=== PATIENT | female | born 1990 | race Caucasian/White ===

== ENCOUNTER → 2018-09-07 | Outpatient (REF) | payer MEDICAID ==
[2018-09-07 14:19] LABS: BASO % 0.5 % (0.0-1.0); EOS # 0.1 10^3/uL (0.0-0.50); HEMATOCRIT 41.9 % (36.0-47.0); HEMOGLOBIN 13.6 g/dl (12.0-15.5); LYMPH # 1.5 10^3/uL (1.5-6.5); LYMPH % 34.8 % (24.0-44.0); MEAN CORPUSCULAR HEMOGLOBIN 28.6 pg (27.0-33.0); MEAN CORPUSCULAR HGB CONC 32.5 g/dl (32.0-36.5); MONO # 0.4 10^3/uL (0.0-0.8); NEUTROPHILS # 2.4 10^3/uL (1.8-7.7); NEUTROPHILS % 54.5 % (36.0-66.0); PLATELET COUNT, AUTOMATED 234 10^3/uL (150-450); RED BLOOD COUNT 4.76 10^6/uL (4.00-5.40); WHITE BLOOD COUNT 4.4 10^3/uL (4.0-10.0)
[2018-09-07 14:30] LABS: ALT/SGPT 14 U/L (12-78); BILIRUBIN,TOTAL 0.5 MG/DL (0.2-1.0); BLOOD UREA NITROGEN 13 MG/DL (7-18); CALCIUM LEVEL 8.7 MG/DL (8.5-10.1); CARBON DIOXIDE LEVEL 31 MEQ/L (21-32); CHLORIDE LEVEL 107 MEQ/L (98-107); CHOLESTEROL LEVEL 173 MG/DL (<200); CHOLESTEROL RISK RATIO 3.326 (<5); FREE T4 0.81 NG/DL (0.76-1.46); GLOMERULAR FILTRATION RATE > 60.0 (>60); GLUCOSE, FASTING 85 MG/DL (70-100); HDL CHOLESTEROL 52 MG/DL (>40); LDL CHOLESTEROL 105 MG/DL (<100); NON-HDL-C 121 MG/DL; POTASSIUM SERUM 4.9 MEQ/L (3.5-5.1); SODIUM LEVEL 141 MEQ/L (136-145); TOTAL PROTEIN 6.8 GM/DL (6.4-8.2); TRIGLYCERIDES LEVEL 78 MG/DL (<150)
[2018-09-07 14:34] LABS: TOTAL 25(OH) VITAMIN D 31.3 NG/ML (30.0-100.0)
[2018-09-07 14:35] LABS: PTH INTACT 65.5 PG/ML (18.5-88.0)
[2018-09-07 15:14] LABS: HEPATITIS C VIRUS ABY INDEX 0.1 INDEX (<0.8)
[2018-09-07 15:15] LABS: HIV 1&2 SCREEN CENTAUR NEGATIVE (NEGATIVE)
[2018-09-07 15:27] LABS: HEMOGLOBIN A1c 5.3 %
[2018-09-08 14:16] LABS: CREATININE, URINE 180.5 mg/dL (20.0-300.0); HEPATITIS BE ANTIGEN Negative (Negative)
[2018-09-09 14:08] LABS: HEPATITIS B SURFACE ANTIGEN NEGATIVE (NEGATIVE)
[2018-09-09 14:36] LABS: HEPATITIS A ANTIBODY IGM NEGATIVE (NEGATIVE); HEPATITIS B CORE ANTIBODY IGM NEGATIVE (NEGATIVE)
== END ==
LOC: M LABDRAWP 11:20
PROVIDERS: ATTEND Nurse Practitioner Family
DX: Z11.3 Encounter for screening for infections with a predominantly sexual mode of transmission (principal); E03.9 Hypothyroidism, unspecified; Z87.898 Personal history of other specified conditions; Z13.228 Encounter for screening for other metabolic disorders; E55.9 Vitamin D deficiency, unspecified

== ENCOUNTER → 2018-09-27 | Outpatient (CLI) | payer MEDICAID ==
--- NOTE | 2018-09-27 18:52 | REP ---
Digital diagnostic bilateral mammography with CAD, 3-D tomography, and focused right breast sonography: History: Intermittent right breast discharge occasionally bloody. No comparison imaging. Mammographic findings: Scattered fibroglandular elements are noted bilaterally in a pattern which is symmetric. No dominant density seen on either side. No microcalcification, architectural distortion, worrisome skin change, or mass lesion is seen. Sonographic findings: The right breast is scanned retroareolar region. Heterogeneous fibroglandular echotexture is seen. No cyst, dilated ducts, mass or acoustic shadowing is seen. Impression: BIRADS category one negative findings. Clinical follow-up is advised. BIRADS 1: BI-RADS/ACR category 1 mammogram. Negative Mammogram. This patient's estimated Tyrer-Cuzick lifetime risk assessment for the breast cancer is 13.5 %. This mammogram was interpreted with the aid of an FDA-approved computer-aided detection system. . The patient states she had a clinical breast exam in September 2018 The patient letter being requested is m2. Electronically Signed by Dre Enriquez MD 09/27/2018 07:34 P
== END ==
LOC: M RAD 14:31
PROVIDERS: ATTEND Nurse Practitioner Family
DX: N64.52 Nipple discharge (principal)
CPT/HCPCS: 76642; 77066; G0279

== ENCOUNTER → 2018-10-07 | Outpatient (REF) | payer MEDICAID ==
[2018-10-13 15:52] LABS: HPV HYBRID CAPTURE II Positive (Negative)
== END ==
LOC: M SFHCPLAZ 15:43
PROVIDERS: ATTEND Nurse Practitioner Family
DX: Z12.4 Encounter for screening for malignant neoplasm of cervix (principal); Z11.51 Encounter for screening for human papillomavirus (HPV); R87.610 Atypical squamous cells of undetermined significance on cytologic smear of cervix (ASC-US)

== ENCOUNTER → 2018-10-31 | Outpatient (REF) | payer OTHER | LOC: M SFHCWAGY 15:30 | PROVIDERS: ATTEND Nurse Practitioner Women's Health | DX: R87.810 Cervical high risk human papillomavirus (HPV) DNA test positive (principal); R87.610 Atypical squamous cells of undetermined significance on cytologic smear of cervix (ASC-US) ==

== ENCOUNTER 2018-12-13 18:44 | Emergency (ER) | payer OTHER ==
[~2018-12-13] VITALS: Ht 172.7 cm; Wt 72.7 kg
[2018-12-13] MEDS ORDERED: HYDR50TA70 (18:51)
[2018-12-13] MEDS ORDERED: TRAZ-160 (18:51)
[2018-12-13] MEDS ORDERED: NS 1,000 ML IV ONE (20:15)
[2018-12-13 21:03] LABS: BASO # 0.1 10^3/uL (0.0-0.2); BASO % 0.9 % (0.0-1.0); EOS # 0.2 10^3/uL (0.0-0.50); EOS % 3.2 % (0.0-3.0); HEMATOCRIT 39.5 % (36.0-47.0); HEMOGLOBIN 13.2 g/dl (12.0-15.5); LYMPH # 2.2 10^3/uL (1.5-6.5); LYMPH % 39.3 % (24.0-44.0); MEAN CORPUSCULAR HEMOGLOBIN 29.7 pg (27.0-33.0); MEAN CORPUSCULAR HGB CONC 33.4 g/dl (32.0-36.5); MEAN CORPUSCULAR VOLUME 88.8 fl (80.0-96.0); MONO # 0.4 10^3/uL (0.0-0.8); NEUTROPHILS # 2.8 10^3/uL (1.8-7.7); NEUTROPHILS % 49.4 % (36.0-66.0); PLATELET COUNT, AUTOMATED 249 10^3/uL (150-450); RED BLOOD COUNT 4.45 10^6/uL (4.00-5.40); WHITE BLOOD COUNT 5.7 10^3/uL (4.0-10.0)
[2018-12-13 21:16] LABS: HCG, SERUM QUALITATIVE NEGATIVE (NEGATIVE)
[2018-12-13 21:18] LABS: ALBUMIN 3.5 GM/DL (3.2-5.2); ALT/SGPT 19 U/L (12-78); BILIRUBIN,DIRECT < 0.1 MG/DL (0.0-0.2); BILIRUBIN,TOTAL 0.4 MG/DL (0.2-1.0); BLOOD UREA NITROGEN 15 MG/DL (7-18); CALCIUM LEVEL 8.5 MG/DL (8.5-10.1); CARBON DIOXIDE LEVEL 30 MEQ/L (21-32); CHLORIDE LEVEL 108 MEQ/L (98-107); CREATININE FOR GFR 0.87 MG/DL (0.55-1.30); GLOMERULAR FILTRATION RATE > 60.0 (>60); GLUCOSE, FASTING 112 MG/DL (70-100); LIPASE 176 U/L (73-393); POTASSIUM SERUM 4.3 MEQ/L (3.5-5.1); SODIUM LEVEL 141 MEQ/L (136-145); TOTAL PROTEIN 6.7 GM/DL (6.4-8.2)
[2018-12-13] MEDS ORDERED: metroNIDAZOLE (FLAGYL) 500 MG TAB PO ONE (21:30)
--- NOTE | 2018-12-13 22:02 | REPVR ---
EXAM: US Pelvis Complete, Transabdominal and US Pelvis, Transvaginal EXAM DATE/TIME: 12/13/2018 9:10 PM CLINICAL HISTORY: 28 years old, female; Signs and symptoms; Menstruation abnormalities; Excessive menstruation; With irregular cycle; Prior surgery; Surgery date: 6+ months; Surgery type: x2; Additional info: Pelvic pain, vag bleeding TECHNIQUE: Imaging protocol: Real-time transabdominal and transvaginal pelvic ultrasound (complete) with image documentation. Transvaginal imaging was used for better evaluation of the endometrium and adnexa. COMPARISON: No relevant prior studies available. FINDINGS: Uterus/cervix: 9.6 x 4.2 x 6.6 cm. Normal endometrial thickness, measuring approximately 7 mm. Right ovary: 5.5 x 2.3 x 3.3 cm. No mass. Normal ovarian blood flow. Left ovary: 5.8 x 3 x 3.9 cm. No mass. Normal ovarian blood flow. Free fluid: None. Bladder: Decompressed urinary bladder, which limits evaluation for wall thickening. IMPRESSION: No acute sonographic findings. Electronically signed by: Drew Sol On 12/13/2018 22:02:53 PM
[2018-12-13 22:19] LABS: CHLAMYDIA DNA AMPLIFICATION NEGATIVE (NEGATIVE); GC DNA AMPLIFICATION NEGATIVE (NEGATIVE)
[2018-12-13] MEDS ORDERED: FLAG500T PO (22:21)
[2018-12-13 22:36] VITALS: BP 121/76
== END 2018-12-13 22:38 | disposition home or self-care (01) ==
LOC: M ED 18:44
DX: N93.9 Abnormal uterine and vaginal bleeding, unspecified (principal); N76.0 Acute vaginitis; Z87.891 Personal history of nicotine dependence

== ENCOUNTER 2019-05-10 14:28 | Emergency (ER) | payer OTHER ==
[~2019-05-10] VITALS: Ht 172.7 cm; Wt 72.7 kg
[2019-05-10 14:28] VITALS: BP 138/63
[~2019-05-10 14:28] MED LIST: FLAG500T PO; HYDR50TA70; TRAZ-252
[2019-05-10] MEDS ORDERED: MELA2.5C2 PO (14:35)
[2019-05-10 15:12] LABS: HEMATOCRIT 35.8 % (36.0-47.0); MEAN CORPUSCULAR HEMOGLOBIN 29.4 pg (27.0-33.0); MEAN CORPUSCULAR HGB CONC 33.5 g/dl (32.0-36.5); MEAN CORPUSCULAR VOLUME 87.7 fl (80.0-96.0); PLATELET COUNT, AUTOMATED 211 10^3/uL (150-450); RED BLOOD COUNT 4.08 10^6/uL (4.00-5.40); WHITE BLOOD COUNT 6.1 10^3/uL (4.0-10.0)
--- NOTE | 2019-05-10 16:41 | REP ---
FIRST TRIMESTER ULTRASOUND: Real-time sonographic evaluation of the gravid uterus is performed. There is a single living intrauterine gestation. The estimated gestational age is 7 weeks 0 days based on a crown rump length of 9 mm, EDC 12/27/2019. heart rate is 141 beats per minute. There is no subchorionic hemorrhage. Complex cystic structure of the right ovary probably represents a corpus luteum, 2.8 x 1.2 x 1.8 cm. There is blood flow seen in each ovary with duplex Doppler evaluation, with no torsion. Electronically Signed by Juan Antonio Abarca MD 05/10/2019 06:43 P
== END 2019-05-10 16:54 | disposition home or self-care (01) ==
LOC: M ED 14:28
DX: O26.851 Spotting complicating pregnancy, first trimester (principal); Z3A.01 Less than 8 weeks gestation of pregnancy

== ENCOUNTER → 2019-06-09 | Outpatient (CLI) | payer OTHER ==
[~2019-06-09] MED LIST changes: +MELA2.5C2 PO
[2019-06-09 13:06] LABS: BASO % 0.5 % (0.0-1.0); EOS % 0.5 % (0.0-3.0); HEMATOCRIT 36.7 % (36.0-47.0); HEMOGLOBIN 12.2 g/dl (12.0-15.5); LYMPH # 1.4 10^3/uL (1.5-5.0); LYMPH % 24.3 % (24.0-44.0); MEAN CORPUSCULAR HGB CONC 33.2 g/dl (32.0-36.5); MEAN CORPUSCULAR VOLUME 87.2 fl (80.0-96.0); MONO # 0.4 10^3/uL (0.0-0.8); MONO % 6.9 % (0.0-5.0); NEUTROPHILS # 3.9 10^3/uL (1.5-8.5); NEUTROPHILS % 67.5 % (36.0-66.0); PLATELET COUNT, AUTOMATED 218 10^3/uL (150-450); RED BLOOD COUNT 4.21 10^6/uL (4.00-5.40); WHITE BLOOD COUNT 5.8 10^3/uL (4.0-10.0)
[2019-06-09 13:44] LABS: FREE T4 0.91 NG/DL (0.76-1.46)
[2019-06-09 13:56] LABS: RUBELLA IgG QUALITATIVE IMMUNE (IMMUNE)
[2019-06-09 14:26] LABS: HIV 1&2 SCREEN CENTAUR NEGATIVE (NEGATIVE)
[2019-06-09 14:29] LABS: CHLAMYDIA DNA AMPLIFICATION NEGATIVE (NEGATIVE); GC DNA AMPLIFICATION NEGATIVE (NEGATIVE)
== END ==
LOC: M WUC 11:50
PROVIDERS: ATTEND Advanced Practice Midwife
DX: Z34.81 Encounter for supervision of other normal pregnancy, first trimester (principal)

== ENCOUNTER → 2019-07-04 | Outpatient (CLI) | payer OTHER | LOC: M WUC 16:26 | PROVIDERS: ATTEND Advanced Practice Midwife | DX: O34.211 Maternal care for low transverse scar from previous cesarean delivery (principal) ==

== ENCOUNTER → 2019-07-06 | Outpatient (CLI) | payer OTHER | LOC: M PLALAB 11:01 | PROVIDERS: ATTEND Advanced Practice Midwife | DX: Z34.82 Encounter for supervision of other normal pregnancy, second trimester (principal); Z3A.00 Weeks of gestation of pregnancy not specified ==

== ENCOUNTER → 2019-08-07 | Outpatient (CLI) | payer OTHER ==
--- NOTE | 2019-08-07 19:27 | REP ---
Clinical: Anatomical evaluation. Comparison: None . Findings: Examination demonstrates a single live intrauterine in breech presentation. motion is identified by technologist. Placenta is noted posterior/fundal and grade zero without evidence for placenta previa or abruption. Amniotic fluid volume is normal. Cervix measures 3.8 cm in length and appears closed. No evidence for nuchal cord. Gestational age by LMP 19 weeks 5 days with ISABEL 12/27/2019 . Gestational age by current measurements 20 weeks 4 days with ISABEL 12/21/2019 . FHR equals 152 beats per minute. BPD 4.8 cm 20 weeks 4 days HC 17.7 cm 20 weeks 1 day AC 16.0 cm 21 weeks 1 day FL 3.3 cm 20 weeks 2 days HL 3.1 cm 20 weeks 3 days HC/AC ratio 1.11 Estimated weight 371 grams ( 85th percentile). Anatomical assessment demonstrates normal structures including cranium, choroid plexus, cavum, cerebellum/posterior fossa, facial features, lungs,diaphragm, stomach, cord insertion/three-vessel cord, bladder, and extremities. Impression: Single live intrauterine in breech presentation demonstrating appropriate interval growth. 2. Limited evaluation of the heart/ventricular outflow tracts, kidneys and spine. Remainder of the anatomical assessment is complete and normal. Electronically Signed by Bonifacio Montes MD 08/07/2019 07:19 P
== END ==
LOC: M RAD 14:17
PROVIDERS: ATTEND Advanced Practice Midwife
DX: Z34.92 Encounter for supervision of normal pregnancy, unspecified, second trimester (principal)

== ENCOUNTER → 2019-09-14 | Outpatient (CLI) | payer OTHER ==
--- NOTE | 2019-09-14 17:03 | REP ---
Clinical: Anatomical evaluation. Comparison: 08/07/2019 . Findings: Examination demonstrates a single live intrauterine in breech presentation. motion is identified by technologist. Placenta is noted posterior/fundal and grade zero without evidence for placenta previa or abruption. Amniotic fluid volume is normal. Cervix measures 3.6 cm in length and appears closed. No evidence for nuchal cord. Gestational age by LMP 25 weeks 1 day with ISABEL 12/27/2019 . FHR equals 128 beats per minute. Estimated weight 838 grams ( 59th percentile). Anatomical assessment demonstrates normal structures including cranium, choroid plexus, cavum, cerebellum/posterior fossa, facial features, lungs, four-chamber heart/ventricular outflow tracts, diaphragm, stomach, cord insertion/three-vessel cord, kidneys/bladder, and extremities. Impression: Single live intrauterine in breech presentation demonstrating appropriate interval growth. Limited evaluation of the spine again noted. The remainder of the anatomical assessment is complete and normal. Electronically Signed by Bonifacio Montes MD 09/14/2019 04:55 P
== END ==
LOC: M RAD 16:02
PROVIDERS: ATTEND Obstetrics & Gynecology
DX: Z36.9 Encounter for antenatal screening, unspecified (principal); Z3A.25 25 weeks gestation of pregnancy

== ENCOUNTER → 2019-10-10 | Outpatient (CLI) | payer OTHER ==
[2019-10-10 20:45] LABS: BASO % 0.4 % (0.0-1.0); EOS # 0.1 10^3/uL (0.0-0.5); EOS % 0.7 % (0.0-3.0); GLUCOSE CHALLENGE TEST 1 HOUR 88 MG/DL (LESS THAN 140); HEMATOCRIT 31.1 % (36.0-47.0); HEMOGLOBIN 10.2 g/dl (12.0-15.5); LYMPH # 1.2 10^3/uL (1.5-5.0); LYMPH % 14.5 % (24.0-44.0); MEAN CORPUSCULAR HEMOGLOBIN 29.9 pg (27.0-33.0); MEAN CORPUSCULAR HGB CONC 32.8 g/dl (32.0-36.5); MEAN CORPUSCULAR VOLUME 91.2 fl (80.0-96.0); MONO # 0.8 10^3/uL (0.0-0.8); MONO % 8.9 % (0.0-5.0); NEUTROPHILS # 6.3 10^3/uL (1.5-8.5); NEUTROPHILS % 74.7 % (36.0-66.0); PLATELET COUNT, AUTOMATED 229 10^3/uL (150-450); RED BLOOD COUNT 3.41 10^6/uL (4.00-5.40); WHITE BLOOD COUNT 8.4 10^3/uL (4.0-10.0)
[2019-10-11 11:53] LABS: RUBELLA IgG QUALITATIVE IMMUNE (IMMUNE)
[2019-10-11 12:22] LABS: HEPATITIS C VIRUS ABY INDEX < 0.0 INDEX (<0.8); HIV 1&2 SCREEN CENTAUR NEGATIVE (NEGATIVE)
== END ==
LOC: M WUC 15:15
PROVIDERS: ATTEND Advanced Practice Midwife
DX: O34.219 Maternal care for unspecified type scar from previous cesarean delivery (principal)

== ENCOUNTER → 2019-11-16 | Outpatient (REF) | payer OTHER ==
[~2019-11-16] MED LIST changes: +PRENTAB9 PO
== END ==
LOC: M LAB REF 12:28
PROVIDERS: ATTEND Obstetrics & Gynecology
DX: Z34.83 Encounter for supervision of other normal pregnancy, third trimester (principal)

== ENCOUNTER 2019-11-20 13:07 | Outpatient (CLI) | payer OTHER ==
[~2019-11-20] VITALS: Ht 172.7 cm; Wt 92.3 kg
[~2019-11-20 13:07] MED LIST changes: -PRENTAB9 PO
[2019-11-20 13:37] VITALS: BP 116/59
[2019-11-20] MEDS ORDERED: BETAMETHASONE SOLUSPAN 6MG/ML 5ML VIAL (J0702 PER 3MG) IM SCH (14:00)
[2019-11-21] MEDS ORDERED: PRENTAB9 PO (14:10)
[2019-11-27] MEDS ORDERED: IRON65TA2 PO (15:48)
== END 2019-11-20 14:25 | disposition home or self-care (01) ==
LOC: M LDO 13:07
PROVIDERS: ATTEND Obstetrics & Gynecology
DX: O99.89 Other specified diseases and conditions complicating pregnancy, childbirth and the puerperium (principal); Z87.59 Personal history of other complications of pregnancy, childbirth and the puerperium; Z98.891 History of uterine scar from previous surgery; Z3A.36 36 weeks gestation of pregnancy
CPT/HCPCS: 59025; 96372; J0702

== ENCOUNTER 2019-11-21 13:52 | Outpatient (CLI) | payer OTHER ==
[~2019-11-21] VITALS: Ht 172.7 cm; Wt 91.7 kg
[2019-11-21 14:04] VITALS: BP 98/58
[2019-11-21] MEDS ORDERED: PRENTAB9 PO (14:10)
[2019-11-21] MEDS ORDERED: BETAMETHASONE SOLUSPAN 6MG/ML 5ML VIAL (J0702 PER 3MG) IM ONE (14:15)
[2019-11-21 14:46] VITALS: BP 107/51
[2019-11-27] MEDS ORDERED: IRON65TA2 PO (15:48)
== END 2019-11-21 14:50 | disposition home or self-care (01) ==
LOC: M LDO 13:52
PROVIDERS: ATTEND Obstetrics & Gynecology
DX: O99.89 Other specified diseases and conditions complicating pregnancy, childbirth and the puerperium (principal); Z87.59 Personal history of other complications of pregnancy, childbirth and the puerperium; Z98.891 History of uterine scar from previous surgery; Z3A.36 36 weeks gestation of pregnancy
CPT/HCPCS: 96372; J0702

== ENCOUNTER 2019-11-29 05:40 | Inpatient (IN) | payer OTHER ==
[~2019-11-29] VITALS: Ht 170.2 cm; Wt 87.0 kg
[2019-11-29] VITALS (7 sets, daily range): BP systolic 100–113; BP diastolic 49–61
[~2019-11-29 05:40] MED LIST changes: +IRON65TA2 PO; +PRENTAB9 PO
[2019-11-29] MEDS ORDERED: LR 1,000 ML IV SCH (05:52)
[2019-11-29] MEDS ORDERED: LACTATED RINGER'S 1000 ML IV STA (05:52)
[2019-11-29] MEDS ORDERED: ceFAZolin SOD 2 GM in IV 1 EA IV ONE (06:00)
[2019-11-29] MEDS ORDERED: BICITRA 30ML SOLN UDC PO ONE (06:00)
[2019-11-29 06:35] LABS: HEMOGLOBIN 10.1 g/dl (12.0-15.5); MEAN CORPUSCULAR HEMOGLOBIN 28.1 pg (27.0-33.0); MEAN CORPUSCULAR HGB CONC 33.7 g/dl (32.0-36.5); MEAN CORPUSCULAR VOLUME 83.3 fl (80.0-96.0); PLATELET COUNT, AUTOMATED 275 10^3/uL (150-450); WHITE BLOOD COUNT 9.7 10^3/uL (4.0-10.0)
[2019-11-29] MEDS ORDERED: OXYTOCIN DRIP 30 UNITS in IV 1 EA IV SCH (07:42)
[2019-11-29] MEDS ORDERED: IBUPROFEN 800 MG TAB PO PRN (07:45)
[2019-11-29] MEDS ORDERED: RHOGAM 300 MCG (1500 IU) INJ (J2790) IM SCH (07:45)
[2019-11-29] MEDS ORDERED: ONDANSETRON 4 MG TAB PO PRN (07:45)
[2019-11-29] MEDS ORDERED: MEASLES,MUMPS,RUBELLA VACCINE INJ (MMR-II) (90707) SC SCH (07:45)
[2019-11-29] MEDS ORDERED: NALBUPHINE HCL 10 MG/ML AMP (J2300) IV PRN ×2 (07:59→09:30)
[2019-11-29] MEDS ORDERED: NALOXONE INJ 0.4MG/1ML VIAL (J2310 PER 1MG) IV PRN ×2 (07:59)
[2019-11-29] MEDS ORDERED: ONDANSETRON 4MG/2ML VIAL IV PRN ×2 (07:59→09:30)
[2019-11-29] MEDS ORDERED: diphenhydrAMINE 50MG/ML VIAL (J1200) IV PRN (07:59)
[2019-11-29] MEDS ORDERED: METOCLOPRAMIDE INJ 10MG/2ML VIAL (J2765 PER 1) IV PRN (07:59)
[2019-11-29] MEDS ORDERED: MORPHINE PRES-FREE INJ 10 MG/10 ML VIAL (J2274) As Ordered ONE (08:11)
[2019-11-29] MEDS ORDERED: ONDANSETRON 4MG/2ML VIAL As Ordered ONE (08:11)
[2019-11-29] MEDS ORDERED: dexameTHASONE 4 MG/ML 1ML VIAL (J1100 PER 1MG) As Ordered ONE (08:11)
[2019-11-29] MEDS ORDERED: OXYTOCIN 30 UNITS IN 0.9% NaCl 500ML IV BAG (J2590) As Ordered ONE ×2 (08:11→09:19)
[2019-11-29] MEDS ORDERED: KETAMINE HCL 200 MG/20 ML VIAL As Ordered ONE (08:11)
[2019-11-29] MEDS ORDERED: KETOROLAC 60 MG/2 ML VIAL As Ordered ONE (08:11)
[2019-11-29] MEDS ORDERED: MIDAZOLAM INJ 2MG/2ML VIAL (J2250 PER 1MG) As Ordered ONE (08:21)
[2019-11-29] MEDS ORDERED: PHENYLephrine HCL 500 MCG/5 ML (100MCG/ML) SYRINGE (J2370) As Ordered ONE (08:24)
[2019-11-29] MEDS ORDERED: ePHEDrine SULFATE 25 MG/5 ML(5MG/ML) SYRINGE As Ordered ONE (08:24)
[2019-11-29 08:27] LABS: CORD GAS HCO3 V 22.7 MEQ/L; CORD GAS O2 SAT V 57.7 %; CORD GAS PCO2 V 38.6 mmHg; CORD GAS PH V 7.387 UNITS; CORD GAS PO2 V 23.7 mmHg; CORD GAS SBC V 21.9 MEQ/L; CORD GAS TCO2 V 23.9 MEQ/L
[2019-11-29 08:28] LABS: CORD GAS ABE A -1.3; CORD GAS O2 SAT A 23.6 %; CORD GAS PCO2 A 54.9 mmHg; CORD GAS PH A 7.294 UNITS; CORD GAS PO2 A 14.1 mmHg; CORD GAS SBC A 21.7 MEQ/L; CORD GAS TCO2 A 27.7 MEQ/L
[2019-11-29] MEDS ORDERED: fentaNYL 100 MCG/2 ML INJECTION (J3010) As Ordered ONE ×2 (08:33→09:11)
[2019-11-29] MEDS: PRENATAL VITAMINS CHEWABLE TABLET PO SCH (09:00)
[2019-11-29] MEDS: fentaNYL 100 MCG/2 ML INJECTION (J3010) IV PRN ×2 (09:22→09:36)
[2019-11-29] MEDS ORDERED: ACETAMINOPHEN 1000MG 100ML IV BTL (OFIRMEV) (J0131 PER 10MG) As Ordered ONE (09:49)
[2019-11-29] MEDS ORDERED: ACETAMINOPHEN *IV* 1,000 MG IV ONE ×2 (10:00)
[2019-11-29] MEDS: PERCOCET 5MG/325MG TAB PO PRN ×2 (16:30→20:41)
[2019-11-30] MEDS: PERCOCET 5MG/325MG TAB PO PRN ×6 (00:13→23:47)
[2019-11-30 02:00] VITALS: BP 108/54
[2019-11-30 06:00] VITALS: BP 109/54
[2019-11-30 06:56] LABS: HEMATOCRIT 31.7 % (36.0-47.0); HEMOGLOBIN 10.1 g/dl (12.0-15.5); MEAN CORPUSCULAR HEMOGLOBIN 27.5 pg (27.0-33.0); MEAN CORPUSCULAR HGB CONC 31.9 g/dl (32.0-36.5); MEAN CORPUSCULAR VOLUME 86.4 fl (80.0-96.0); PLATELET COUNT, AUTOMATED 263 10^3/uL (150-450); RED BLOOD COUNT 3.67 10^6/uL (4.00-5.40); WHITE BLOOD COUNT 13.9 10^3/uL (4.0-10.0)
[2019-11-30 08:00] VITALS: BP 109/54
[2019-11-30 10:00] VITALS: BP 98/55
[2019-11-30] MEDS: PRENATAL VITAMINS CHEWABLE TABLET PO SCH (10:20)
--- NOTE | 2019-11-30 13:44 | RO ---
DATE OF PROCEDURE: 11/29/2019 Brittney is 29-year-old female, 4, para 2-0-1-2, with a history of uterine rupture with her last section at 36 weeks with a classical incision. After extensive counseling and completing beta a decision was made to proceed with her repeat section at 36 weeks to prevent further complications. PREOPERATIVE DIAGNOSES: 1. Intrauterine at 36 weeks gestation with a history of prior section. 2. History of prior uterine rupture with a classical scar. POSTOPERATIVE DIAGNOSES: 1. Intrauterine at 36 weeks gestation with a history of prior section. 2. History of prior uterine rupture with a classical scar. 3. Dense uterine bladder and omental adhesion. 4. Thin lower uterine segments. PROCEDURE: 1. Repeat section. 2. Revision of old scar. 3. Extensive lysis of adhesions. ANESTHESIA: Spinal. SURGEON: Dr. Aparicio SOAP DRIER TENDER: Robyn Carl CNM COMPLICATIONS: None. ESTIMATED BLOOD LOSS: 600 mL. FINDINGS: Live male infant in occiput transverse position, 9/9, weight 7 pounds 2 ounces. Normal-appearing tube and ovary. Very thin lower uterine segment noted with the bladder adherent to the lower uterine segment, the omentum adherent to the uterus as well as the lower uterine segment and anterior abdominal wall. DESCRIPTION OF PROCEDURE: After obtaining informed consent, the patient was taken to the operating room where spinal anesthetic was found to be adequate. She was then draped and prepped in usual sterile fashion in the supine position with the help of Brandy Carl. An elliptical incision was made over the old scars. The old scars were removed. The incision was then carried down to the fascia. Fascia was incised in midline fashion and carried through laterally. Upon dissecting the fascia, the uterus was found right in-between the rectus muscles with the bladder adherent to the lower uterine segment as well as the omentum. At this point, using the Bovie and a series of sharp and blunt dissection we were able to remove the omental adhesions as well as attempting to push down the bladder. However, the uterine segment was really thin. We pushed the bladder as much as possible without causing any bladder injury. The amniotic sac was then noted after uterine incision. The artificial rupture of membrane was performed. Clear fluid noted. was then delivered in atraumatic fashion. Nose and mouth bulb suctioned. Cord doubly clamped and cut, and was then handed over to the waiting warmer. Cord blood and cord gas were sent. Uterus cleared of all clot and debris, and the uterine incision was then repaired in two separate layers of #0 Vicryl sutures. Pelvis copiously irrigated with normal saline and suctioned out. Attention turned to the peritoneum, which was closed in a running fashion using #2-0 Vicryl suture. Fascia closed in two separate segment of #0 Vicryl sutures. All superficial bleeders were coagulated. The skin was reapproximated in a subcuticular fashion using #3-0 Vicryl on a Raheem. Steri-Strips placed. The patient tolerated procedure well. She was then transferred to recovery room in stable condition.
[2019-11-30 18:17] VITALS: BP 113/55
[2019-11-30 22:00] VITALS: BP 119/63
[2019-12-01] MEDS: PERCOCET 5MG/325MG TAB PO PRN ×2 (05:15→10:18)
[2019-12-01 06:00] VITALS: BP 102/65
[2019-12-01] MEDS: PRENATAL VITAMINS CHEWABLE TABLET PO SCH (08:42)
[2019-12-01] MEDS ORDERED: BOOSTRIX/ADACEL VACCINE (DIPHTH/PERTUSS/ACELL/TETANUS) 0.5ML SYR IM ONE (09:00)
[2019-12-01] MEDS ORDERED: INFLUENZA QUADRIVALENT PF VACCINE 0.5ML SYRINGE (90686) IM ONE (09:00)
[2019-12-01] MEDS ORDERED: IBUP80TA PO (12:15)
[2019-12-01] MEDS ORDERED: PERCOCET PO (12:15)
--- NOTE | 2019-12-05 16:22 | DSES ---
DATE OF ADMISSION: 11/29/2019 DATE OF DISCHARGE: 12/01/2019 FINAL DIAGNOSES: 1. Term with a history of prior section. 2. History of uterine rupture and classical section. POSTOPERATIVE DIAGNOSES: 1. Term with a history of prior section. 2. History of uterine rupture and classical section. 3. Dense uterine bladder and omental adhesion. 4. Thin lower uterine segment. PROCEDURE PERFORMED DURING THIS ADMISSION: Repeat section. CONDITION ON DISCHARGE: Stable. DISCHARGE INSTRUCTIONS: The patient is instructed to call if there is any severe bleeding, pain or temperature greater than 101. She is given a prescription for Percocet and ibuprofen as needed for pain. BRIEF HISTORY: Brittney is a 29-year-old female who was admitted at 36 weeks with a history of prior section times three, history of uterine rupture, status post a classical section. She underwent a repeat section and extensive lysis of adhesion. She was then transferred to maternity for postoperative care. Postoperatively, she did well and remained afebrile throughout her hospital stay. On postoperative day #2 on physical exam she was found to be doing well. No complaint. Incision was clean, dry and intact. At this point a decision was made to discharge the patient. Discharge instruction was given. She is to followup in the office in approximately 2 weeks for an incision check.
== END 2019-12-01 12:50 | disposition home or self-care (01) | DRG 540 ==
LOC: M LDI 05:40 → M OBS 10:34
PROVIDERS: ADMIT Obstetrics & Gynecology; ATTEND Obstetrics & Gynecology
PROC: 10D00Z1 Extraction of Products of Conception, Low, Open Approach (ICD-10-PCS; principal; 2019-11-29 07:30)
DX: O34.211 Maternal care for low transverse scar from previous cesarean delivery (principal); Z3A.36 36 weeks gestation of pregnancy; Z37.0 Single live birth; Z87.59 Personal history of other complications of pregnancy, childbirth and the puerperium

== ENCOUNTER 2020-08-19 17:54 | Emergency (ER) | payer OTHER ==
[~2020-08-19] VITALS: Ht 172.7 cm; Wt 69.3 kg
[~2020-08-19 17:54] MED LIST changes: +IBUP80TA PO; +PERCOCET PO
--- OUTSIDE RECORDS SUMMARY | 2020-08-19 18:00 | CCD ---
Author Author Martina Andre [facility] er Organization Martina Powell [facility] er Address Unknown Phone Unavailable Care Team Providers Care Bobbin Cleaner Hand Name Role Phone Test, Provider Unavailable PROBLEMS No Information ALLERGIES No Known Allergies ENCOUNTERS from 1991 to 2020-07-09 Encounter Location Date Provider Diagnosis [facility] [address] [place] [address] [phone] Dec, Provider Test IMMUNIZATIONS Vaccine Route Administration Date Status [facility] Meningococcal Bexsero IM Intramuscular February 20, 2016 Adm inistered [facility] PPD ID Intradermal February 18, 2017 Administered [facility] PPD ID Intradermal February 11, 2017 Administered [facility] PPD ID Intradermal February 20, 2016 Administered [facility] TDAP IM Intramuscular February 20, 2016 Administered [facility] MMR SC Subcutaneous February 18, 2017 Administered SOCIAL HISTORY Tobacco Use: Social History Observation Description Date Details (start date - stop date) Former Smoker Sex Assigned At : Social History Observation Description Sex Assigned At Unknown Alcohol Screen (Audit-C) Question Answer Notes Did you have a drink containing alcohol in the past year? No Points 0 Interpretation Negative Tobacco Use/Smoking Question Answer Notes Patient is a former smoker How long has it been since you last smoked? 1-3 months REASON FOR REFERRAL No Information VITAL SIGNS No information MEDICATIONS Medication SIG (Take, Route, Frequency, Duration) Notes Start Da te End Date Status Prena1 1.4 MG 1 tablet Orally Once a day Active Multi For Her - Orally Active Norethindrone 0.35 MG 1 tablet Orally Once a day for 30 day(s) May, Active PROCEDURES No Information RESULTS No Results REASON FOR VISIT No Information MEDICAL (GENERAL) HISTORY Type Description Date Surgical History section X2 Hospitalization History see surgical history Goals Section No Information Health Concerns No Information MEDICAL EQUIPMENT No Information MENTAL STATUS No Information FUNCTIONAL STATUS No Information ASSESSMENTS No Information PLAN OF TREATMENT Medication Medication Name Sig Start Date Stop Date Norethindrone 0.35 MG 1 tablet Orally Once a day for 30 day(s) 2 0 May, 2017 Insurance Providers Payer Name Payer Address Payer Phone Insured Name Patient Relati onship to Insured Coverage Start Date Coverage End Date Can [address] Corporate Claims Department A [facility] [phone] MARY PETTIT self 2016
--- OUTSIDE RECORDS SUMMARY | 2020-08-19 18:00 | CCD ---
Author Author Martina Andre [facility] er Organization Martina Powell [facility] er Address Unknown Phone Unavailable Care Team Providers Care Towerman Name Role Phone Test, Provider Unavailable PROBLEMS No Information ALLERGIES No Known Allergies ENCOUNTERS from 1991 to 2020-07-03 Encounter Location Date Provider Diagnosis [facility] [address] [place] [address] [phone] Mar, Provider Test IMMUNIZATIONS Vaccine Route Administration Date [...] [address]Z [address] Corporate Claims Department A [facility] [phone] MARY PETTIT self 2016
--- OUTSIDE RECORDS SUMMARY | 2020-08-19 18:00 | CCD | Continuity of Care Document ---
Author Author [facility] Organization [facility] Address Unknown Phone Unavailable Care Team Providers Care Electronics Processor Name Role Phone Dai Fernando Unavailable Unavailable Allergies, Adverse Reactions, Alerts Substance Reaction Status Criticality No Known Allergies Active No Information Medications Medication Instructions Dosage Effective Dates (start - stop) Sta tus Comments trazodone 50 mg tablet take 1 tablet by oral route every day at bedtime 50 MG - Active hydroxyzine HCl 25 mg tablet take 1 tablet by oral rou te 3 times every day as needed 25 MG - Active Problems Condition Effective Dates (start - stop) Clinical Status C omments Encounter for test, result negative Encounter for oth general cnsl and advice on contraception Encntr screen for infections w sexl mode of transmiss Encounter for screening for human immunodeficiency virus Human immunodeficiency virus [HIV] counseling Other sex counseling Acute vaginitis Candidiasis of vulva and vagina Other specified noninflammatory disorders of vagina Pruritus vulvae Encounter for test, result negative Encntr screen for infections w sexl mode of transmiss High risk heterosexual behavior Candidiasis of vulva and vagina Furuncle, unspecified Encounter for test, result negative Encntr screen for infections w sexl mode of transmiss High risk heterosexual behavior Other sex counseling Encounter for oth general cnsl and advice on contraception Acute vaginitis Pelvic and perineal pain Other sex counseling Encounter for oth general cnsl and advice on contraception Encounter for test, result negative Other specified noninflammatory disorders of vagina Encounter for oth general cnsl and advice on contraception Encntr screen for infections w sexl mode of transmiss Encounter for screening for human immunodeficiency virus Human immunodeficiency virus [HIV] counseling Acute vaginitis Pruritus vulvae Person consulting for explanation of exam or test findings Encounter for oth general cnsl and advice on contraception Encounter for initial prescription of other contraceptives Encounter for test, result negative Encntr screen for infections w sexl mode of transmiss Encounter for screening for human immunodeficiency virus Human immunodeficiency virus [HIV] counseling Pruritus vulvae Acute vaginitis Other sex counseling High risk heterosexual behavior Encntr for director design exam (general) (routine) w/o abn findings Family Planning Counseling STI Counseling STI Screening HIV Counseling HIV, Screening PT, Negative Vulvodynia BV Yeast-vulvovaginal BCM Other, Surveillance HIV Counseling HIV, Screening STI Screening Breast screening HPV Screening Test PT, Negative [employer] Exam, Routine WWE Family Planning Counseling Yeast-vulvovaginal STI Screening PAP, High Risk HPV [employer] Exam, Routine WWE STI Screening F/U Surgical AB STI Screening Procedures Procedure Date No Information Results Test Name Date and Time Measure Units Reference Range Abnormal Flag St atus Comments No Information Advance Directives Directive Yes / No Effective Date File Name No Information Encounters Encounter Description Practice Location Reason(s) For Visit Diagnose s Date Provider Providers Copied on Encounter [facility], [address] [place] [address], [address] [place] [address], tel:[phone] [facility] No Information Bhakti Lala. [address] [place] [address], [id number], . tel:[phone] [facility], [address] [place] [address], [id number], tel:[phone] [facility] Encounter for pregn jesse test, result negativeEncounter for oth general cnsl and advice on contraceptionEncntr screen for infections w sexl mode of transmissEncounter for screening for human immunodeficiency virusHuman immunodeficiency virus [HIV] counselingOther sex counselingAcute vaginitisCandidiasis of vulva and vaginaOther specified noninflammatory disorders of vaginaPruritus vulvae Jason Haider. [address] [place] [address], [id number], . tel:[phone] Referring Provider: Meliza Rivera, [address] [place] [address], [address] [place] [address]. tel:[phone] [facility], [address] [place], [place], [id number], [place] tel:[phone] [facility] Encounter for pregn jesse test, result negativeEncntr screen for infections w sexl mode of transmissHigh risk heterosexual behaviorCandidiasis of vulva and vaginaFuruncle, unspecified Brendarick Sherry. [address] [place], [place], [id number], [place]. tel:[phone] Referring Provider: Sherry Delarosa, [address], [place], [id number]. tel:[phone] [facility], [address] [place] [address], [id number], [place] tel:[phone] [facility] Encounter for pregn jesse test, result negativeEncntr screen for infections w sexl mode of transmissHigh risk heterosexual behaviorOther sex counselingEncounter for oth general cnsl and advice on contraceptionAcute vaginitis Miguel grewal [address] [place] [address], [id number], [place]. tel:[phone] Referring Provider: Meliza Rivera, [address], [place], [id number]. tel:[phone] [facility], [address] [place] [address], [id number], [place] tel:[phone] [facility] [place] Pelvic and perineal painOther sex counselingEncounter for oth general cnsl and advice on contraceptionEncounter for test, result negativeOther specified noninflammatory disorders of vagina Bronwyn Hubbard. [address] [place], [place], [id number]. tel:[phone] Referring Provider: Haydee Barnhart, [address] [place], [place], [id number]. tel:[phone] [facility], [address] [place] [address], [id number], [place] tel:[phone] [facility] Encounter for oth g eneral cnsl and advice on contraceptionEncntr screen for infections w sexl mode of transmissEncounter for screening for human immunodeficiency virusHuman immunodeficiency virus [HIV] counselingAcute vaginitisPruritus vulvaePerson consulting for explanation of exam or test findings Keysha Pierce. [address] [place] [address], [id number], . tel:[phone] Referring Provider: Kari Elder, [address] [place] [address], [id number]. tel:[phone] [facility], [address] [place] [address], [id number], tel:[phone] [facility] Encounter for oth g eneral cnsl and advice on contraceptionEncounter for initial prescription of other contraceptivesEncounter for test, result negativeEncntr screen for infections w sexl mode of transmissEncounter for screening for human immunodeficiency virusHuman immunodeficiency virus [HIV] counselingPruritus vulvaeAcute vaginitisOther sex counselingHigh risk heterosexual behaviorEncntr for director design exam (general) (routine) w/o abn findings Jorge Hubbard. [address] [place] [address], [id number]. tel:[phone] Referring Provider: Haydee Barnhart, [address] [place] [address], [id number]. tel:[phone] [facility], [address] [place] [address], [id number], tel:[phone] [facility] Family Planning Cou nselingSTI CounselingSTI ScreeningHIV CounselingHIV, ScreeningPT, NegativeVulvodyniaBVYeast-vulvovaginal Bronwyn Hubbard. [address] [place] [address], [id number]. tel:[phone] Referring Provider: Haydee Barnhart, [address] [place] [address], [id number]. tel:[phone] [facility] [place], [address] [place] [address], [id number], [place] tel:[phone] CLEO Boyce BCM Other, Surveillance Elvin Cox. [address], [place], [id number], [place]. tel:[phone] [facility] [place], [address] [place] [address], [id number], [place] tel:[phone] CLEO Boyce HIV CounselingHIV, ScreeningSTI ScreeningBreast screeningHPV Screening TestPT, NegativeGYN Exam, Routine WWEFamily Planning Counseling Elvin Cox. [address], [place], [id number], [place]. tel:[phone] [facility] [address] [place] [address], [id number], [place] tel:[phone] CLEO Boyce Yeast-vulvovaginalSTI Scr eening Elvin Cox. [address], [place], [id number], [place]. tel:[phone] [facility] [place], [address] [place] [address], [id number], [place] tel:[phone] CLEO Villar PAP, High Risk HPV Arredondo. [address] [place] [address], [id number], [place]. tel:[phone] Referring Provider: Karen Barroso, [address] [place] [address], [id number]. tel:[phone] [facility] [place], [address] [place] [address], [id number], [place] tel:[phone] CLEO Boyce [employer] Exam, Routine WWESTI Screening Matteo Carreon. [address] [place] [address], [id number], [place]. tel:[phone] [facility], [address], [place], [id number], [place] tel:[phone] CLEO Boyce F/U Surgical ABSTI Screen ing Elvin Cox. [address], [place], [id number], [place]. tel:[phone] Family History Family Member Diagnosis Age At Onset Maternal aunt Diabetes mellitus Mother Depression Mother Hypertension No family history of Stroke No family history of Myocardial infarcti on Maternal grandmother Cancer, breast Immunizations Vaccine Date Status Comments tetanus toxoid, adsorbed administered Source: Other Provider measles, mumps and rubella virus vaccine adminis tered Source: Other Provider hepatitis A and hepatitis B vaccine administered Source: Other Provider Payers Payer name Insurance type Covered constitution party ID Authorization(s ) [facility] [id number] Social History Type Description Quantity Date Captured Comments Alcohol Use Details Unknown Caffeine Use Details Unknown Tobacco Use Status No Information Smoking Status Former smoker Sex Female Vital Signs Date / Time: Height Weight BMI Pulse Rate Blood Pressure Temperatu re Respiratory Rate Body Surface Area Head Circumference BMI percentile Pulse Ox In haled Ox No Information Chief Complaint And Reason For Visit No Information Reason For Referral Reason For Referral No Information Plan Of Treatment Date Type Action Status Goal Tobacco cessation counseling com pleted Goal Tobacco cessation counseling com pleted Goal Tobacco cessation counseling com pleted Goal Tobacco cessation counseling com pleted History Of Present Illness Encounter Date Complaint History Of Present I llness No Information Functional Status Date Functional Assessment No Information Medications Administered Medication Instructions Dosage Effective Dates (start - stop) Sta tus Comments No Information Instructions Date Instruction Additional Informati on No Information Assessments Type Assessment Date No Information Goals Health Concern Goal Type Priority Status Date No Information Medical Equipment Description Device [place] Device Identifier Effective Luke es (start - stop) Status No Information Mental Status Date Cognitive Assessment No Information Health Concerns Observation Date No Information Concern Status Date No Information Physical Examination Exam Findings Details No Information
--- OUTSIDE RECORDS SUMMARY | 2020-08-19 18:00 | CCD ---
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 Name Role Phone Kiarra Mathewssica Unavailable Miguel SANDERSP, Kiarra Siussica Unavailable Miguel SANDERSP, Kiarra Siussica Unavailable Miguel SANDERSP, Kiarra Meliza Unavailable Miguel SANDERSP, Kiarra Siussica Unavailable Miguel SANDERSP, Kiarra Siussica Unavailable Joe Marquez Unavailable Unavailable Joe Marquez Unavailable Unavailable Joe Marquez Unavailable Unavailable Joe Marquez Unavailable Unavailable Joe Marquez Unavailable Unavailable Joe Marquez Unavailable Unavailable Dierks, J Dai PA Unavailable Unavailable Dierks, J Dai PA Unavailable Unavailable Dierks, J Dai PA Unavailable Unavailable Dierks, J Dai PA Unavailable Unavailable Dierks, J Dai PA Unavailable Unavailable Dierks, J Dai PA Unavailable Unavailable Dierks, J Dai PA Unavailable Unavailable Dierks, J Dai PA Unavailable Unavailable Dierks, J Dai PA Unavailable Unavailable Dierks, J Dai PA Unavailable Unavailable Dierks, J Dai PA Unavailable Unavailable Dierks, J Dai PA Unavailable Unavailable Dierks, J Dai PA Unavailable Unavailable Dierks, J Dai PA Unavailable Unavailable Dierks, J Dai PA Unavailable Unavailable Dierks, J Dai PA Unavailable Unavailable Re-disclosure Warning The records that you are about to access may contain information from federally-assisted alcohol or drug abuse programs. If such information is present, then the following federally mandated warning applies: This information has been disclosed to you from records protected by federal confidentiality rules (42 CFR part 2). The federal rules prohibit you from making any further disclosure of this information unless further disclosure is expressly permitted by the written consent of the person to whom it pertains or as otherwise permitted by 42 CFR part 2. A general authorization for the release of medical or other information is NOT sufficient for this purpose. The Federal rules restrict any use of the information to criminally investigate or prosecute any alcohol or drug abuse patient.The records that you are about to access may contain highly sensitive health information, the redisclosure of which is protected by Article 27-F of the [facility] Public Health law. If you continue you may have access to information: Regarding HIV / AIDS; Provided by facilities licensed or operated by the [facility] Office of Mental Health; or Provided by the [facility] Office for People With Developmental Disabilities. If such information is present, then the following [facility] mandated warning applies: This information has been disclosed to you from confidential records which are protected by state law. State law prohibits you from making any further disclosure of this information without the specific written consent of the person to whom it pertains, or as otherwise permitted by law. Any unauthorized further disclosure in violation of state law may result in a fine or long term sentence or both. A general authorization for the release of medical or other information is NOT sufficient authorization for further disc losure. Family History Family Member Name Family Member Gender Family Member Status Date o f Status Description Data Source(s) Unknown Female Diagnosis 08/23/2014 12:00:00 AM EST [facility] ([facility]) Encounters Encounter Providers Location Date Indications Data Source(s ) Attender: Dai WAHL PPNCNY [place] 07/04 02:22:00 PM EST - 07/31/2020 02:22:00 PM EST [facility] ([facility]) OutpatientOFFICE VISIT, EST Attender: eMliza ULLOA PPNCN Y [place] 05/31/2020 10:15:00 AM EDT - 05/31/2020 10:15:00 AM EDT Pruritus vulvaeOther specified noninflammatory disorders of vaginaCandidiasis of vulva and vaginaAcute vaginitisOther sex counselingHuman immunodeficiency virus [HIV] counselingEncounter for screening for human immunodeficiency virusEncntr screen for infections w sexl mode of transmissEncounter for oth general cnsl and advice on contraceptionEncounter for test, result negative [facility] ([facility]) Pruritus vulvae Other specified noninflammatory disorder s of vagina Candidiasis of vulva and vagina Acute vaginitis Other sex counseling Human immunodeficiency virus [HIV] couns eling Encounter for screening for human immuno deficiency virus Encntr screen for infections w sexl mode of transmiss Encounter for oth general cnsl and advic e on contraception Encounter for test, result neg ative [address] [phone] 01/17/2020 12:00:00 AM EDT eCW1 ([facility]) [address] [address] 12/15/2019 12:00:00 AM EDT eCW1 ([facility]) [address] [address] 11/29/2019 12:00:00 AM EDT eCW1 ([facility]) [address] [address] 11/29/2019 12:00:00 AM EDT eCW1 ([facility]) [address] [address] 11/07/2019 12:00:00 AM EDT eCW1 ([facility] [address] [address] 10/11/2019 12:00:00 AM EDT eCW1 ([facility]) [facility] [address] [place] [address] Y [address] 09/27/2019 12:00:00 AM EST eCW1 ([facility]) [address] [address] 09/12/2019 12:00:00 AM EST eCW1 ([facility]) [address] [address] 09/06/2019 12:00:00 AM EST eCW1 ([facility]) [address] [address] 08/28/2019 12:00:00 AM EST eCW1 ([facility]) [address] [address] 2019 12:00:00 AM EST eCW1 ([facility]) [address] [address] 07/06/2019 12:00:00 AM EST eCW1 ([facility]) [address] [address] 07/06/2019 12:00:00 AM EST eCW1 ([facility]) Medications Medication Brand Name Start Date Product Form Dose Route Admi nistrative Instructions Pharmacy Instructions Status Indications Reaction Description Data Source(s) Metronidazole 500 MG Oral Tablet metronidazole 500 mg tablet metronidazole 500 mg tablet 05/31/2020 12:00:00 AM EDT active 1 tab po bid x 7d (#14) [facility] ([facility]) Fluconazole 150 MG Oral Tablet fluconazole 150 mg tabl et fluconazole 150 mg tablet 05/31/2020 12:00:00 AM EDT completed 1 po x 1 for fungal infection [facility] ([facility]) DO NOT TAKE HYDROXYZINE W/ FLUCONAZOLE Fluconazole 150 MG Oral Tablet fluconazole 150 mg tabl et fluconazole 150 mg tablet 05/31/2020 12:00:00 AM EDT completed 1 po x 1 for fungal infection [facility] ([facility]) Medication administered onsite Metronidazole 500 MG Oral Tablet metronidazole 500 mg tablet metronidazole 500 mg tablet 05/31/2020 12:00:00 AM EDT complete d 1 tab po bid x 7d (#14) [facility] ([facility]) Medication administered onsite ferrous gluconate 324 MG Oral Tablet Ferrous Gluconate 324 (38 Fe) MG Ferrous Gluconate 324 (38 Fe) MG 10/11/2019 12:00:00 AM EDT active 1 tablet with water or juice between meals eCW1 ([facility]) Oseltamivir 75 MG Oral Capsule [Tamiflu] Tamiflu 75 MG Tamif isaiah 75 MG 09/06/2019 12:00:00 AM EST active 1 capsul e eCW1 ([facility]) Fluconazole 150 MG Oral Tablet [Diflucan] Diflucan 150 MG Di flucan 150 MG 07/06/2019 12:00:00 AM EST suspended 1 tablet eCW1 ([facility]) Fluconazole 150 MG Oral Tablet [Diflucan] Diflucan 150 MG Di flucan 150 MG 07/06/2019 12:00:00 AM EST active 1 tablet eCW1 ([facility]) Fluconazole 150 MG Oral Tablet [Diflucan] Diflucan 150 MG Di flucan 150 MG 07/06/2019 12:00:00 AM EST suspended 1 tablet eCW1 ([facility]) Insurance Providers Payer name Policy type / Coverage type Policy ID Covered republican ID Covered republican's relationship to paz Policy Paz Plan Information FABY [id number] SP [id number] FABY [id number] [place]AXSON [id number] FABY [facility] [id number] 74 [id number] ANSI-Commercial [id number] ANSI-Commercial [id number] ANSI-Commercial [id number] ANSI-Commercial [id number] ANSI-Commercial [id number] ANSI-Sellywhere [id number] ANSI-Sellywhere [id number] ANSI-Medicaid [id number] ANSI-Medicaid [id number] MEDICAID [id number] SP [id number] [facility] [id number] [facility] [id number] [facility] [id number] ANSI-Medicaid [id number] ANSI-Medicaid [id number] ANSI-Commercial [id number] ANSI-Commercial [id number] ANSI-Commercial [id number] ANSI-Commercial [id number] MEDICAID [id number] S [id number] FABY CARE [id number] S [id number] BLUE CROSS [id number] S [id number] MEDICAID [id number] FABY I [id number] Self [id number] MEDICAID M [id number] Self [id number] FABY I [id number] Self [id number] UNAVAILABLE UNAVAILA BLE MEDICAID GME [id number] [place] [id number] [place] [id number] MEDICAID [id number] S [id number] SELF PAY ON CONTRACT *5% OF 85% CC DISC- 12/31/16 S *5% OF 85% CC DISC- 12/31/16 SELF PAY ON CONTRACT UNAVAILABLE S UNAVAILABLE SELF-PAY [id number] S [id number] SELF-PAY UNAVAILABLE S UNAVAILA BLE POMCO [id number] S [id number] SELF-PAY [id number] S [id number] Surgeries/Procedures Procedure Description Date Indications Data Source(s) SMEAR, WET MOUNT, SALINE/INK 05/31/2020 12:00:00 AM EDT - 05/31/2020 12:00:00 AM EDT [facility] ([facility]) ASSAY OF BODY FLUID ACIDITY 05/31/2020 1 2:00:00 AM EDT - 05/31/2020 12:00:00 AM EDT [facility] ([facility]) 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 Contraceptive 05/31/2020 12 :00:00 AM EDT - 05/31/2020 12:00:00 AM EDT [facility] ([facility]) CVR Med.Svc. Height/Weight 05/31/2020 12 :00:00 AM EDT - 05/31/2020 12:00:00 AM EDT [facility] ([facility]) CVR Blood Pressure 05/31/2020 12:00:00 AM EDT - 2019 12:00:00 AM EDT [facility] ([facility]) SYPHILLIS BLOOD SEROLOGY, QUALITATIVE 12:00:00 AM EDT - 05/31/2020 12:00:00 AM EDT [facility] ([facility]) HTLV/HIV SERUM TEST 05/31/2020 12:00:00 AM EDT - 05/31 12:00:00 AM EDT [facility] ([facility]) HEPATITIS C AB TEST 05/31/2020 12:00:00 AM EDT - 05/31 12:00:00 AM EDT [facility] ([facility]) N.GONORRHOEAE, URINE 05/31/2020 12:00:00 AM EDT - 05/31/2020 12:00:00 AM EDT [facility] ([facility]) CHYLMD TRACH, URINE 05/31/2020 12:00:00 AM EDT - 05/31 12:00:00 AM EDT [facility] ([facility]) OFFICE VISIT, EST 05/31/2020 12:00:00 AM EDT - 020 12:00:00 AM EDT [facility] ([facility]) URINE TEST 05/31/2020 12:00:00 AM EDT - 05/31/2020 12:00:00 AM EDT [facility] ([facility]) OB Visit 08/28/2019 12:00:00 AM EST e CW1 ([facility]) Results ID Date Data Source [id number] 05/31/2020 11:44:38 AM EDT [facility] ([facility]) Name Value Range Interpretation Code Description Data Christa rce(s) Supporting Document(s) Hyphae/Lorri: yes; Budding yeast: no; Trich: no; Clue cells: yes (>=20%); WBCs: yes (few); Amine/Whiff test: positive; pH: 5.5 A bnormal (applies to non- numeric results) Wet Prep [facility] ([facility]) ID Date Data Source [id number] 05/31/2020 11:44:11 AM EDT [facility] ([facility]) Name Value Range Interpretation Code Description Data Christa rce(s) Supporting Document(s) pH: 5.5. Vaginal pH [facility] ([facility]) ID Date Data Source [id number] 05/31/2020 10:53:08 AM EDT [facility] ([facility]) Name Value Range Interpretation Code Description Data Christa rce(s) Supporting Document(s) NegativeLot: [id number]: 07/01/2021 High Sensitivity Urine Test [facility] ([facility]) Procedure Social History Code Duration Value Status Description Data Source(s ) Smoking 07/31/2020 12:00:00 AM EST Former smoker completed Former smoker [facility] ([facility]) Vital Signs ID Date Data Source UNK Name Value Range Interpretation Code Description Data Source(s) Body mass index (BMI) [Ratio] 22.93 kg/m2 22.93 kg/m2 [facility] ([facility]) Diastolic blood pressure 70 mm[Hg] 70 mm[Hg] [facility] ([facility]) Systolic blood pressure 118 mm[Hg] 118 mm[Hg] N [facility] ([facility]) Body weight 68.402 kg 68.402 kg [facility] ([facility]) Body height 172.72 cm 172.72 cm [facility] Diastolic blood pressure 70 mm[Hg] 70 mm[Hg] [place] ([facility]) Systolic blood pressure 120 mm[Hg] 120 mm[Hg] e 1 ([facility]) Body mass index (BMI) [Ratio] 27.977 kg/m2 27.9 77 kg/m2 [facility] ([facility]) Body height 68 [in_us] 68 [in_us] [place] ([facility]) Body weight Measured 184.0 [lb_av] 184.0 [lb_av ] [facility] ([facility]) Diastolic blood pressure 62 mm[Hg] 62 mm[Hg] eCW1 ([facility]) Systolic blood pressure 102 mm[Hg] 102 mm[Hg] e CW1 ([facility]) Body mass index (BMI) [Ratio] 27.186 kg/m2 27.1 86 kg/m2 [facility] ([facility]) Body height 68 [in_us] 68 [in_us] [facility] ([facility]) Body weight Measured 178.8 [lb_av] 178.8 [lb_av ] [facility] ([facility]) Diastolic blood pressure 64 mm[Hg] 64 mm[Hg] W1 ([facility]) Systolic blood pressure 110 mm[Hg] 110 mm[Hg] e CW1 ([facility]) Body mass index (BMI) [Ratio] 25.848 kg/m2 25.8 48 kg/m2 eCW1 ([facility]) Body height 68 [in_us] 68 [in_us] eCW1 ([facility]) Body weight Measured 170 [lb_av] 170 [lb_av] eC W1 ([facility]) Patient Treatment Plan of Care Planned Activity Planned Date Details Description Data Source (s) Metronidazole 500 MG Oral Tablet 05/31/2020 12:00:00 AM EDT [facility] ([facility]) Fluconazole 150 MG Oral Tablet 05/31/2020 12:00:00 AM EDT [facility] ([facility]) Fluconazole 150 MG Oral Tablet 05/31/2020 12:00:00 AM EDT [facility] ([facility]) Metronidazole 500 MG Oral Tablet 05/31/2020 12:00:00 AM EDT [facility] ([facility]) ferrous gluconate 324 MG Oral Tablet 10/11/2019 12:00:00 AM EDT eCW1 ([facility]) Oseltamivir 75 MG Oral Capsule [Tamiflu] 09/06/2019 12:00:00 AM EST eCW1 ([facility]) Fluconazole 150 MG Oral Tablet [Diflucan] 07/06/2019 12:00:00 AM ES T eCW1 ([facility])
--- OUTSIDE RECORDS SUMMARY | 2020-08-19 18:00 | CCD ---
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
--- OUTSIDE RECORDS SUMMARY | 2020-08-19 18:00 | CCD | Continuity of Care Document ---
Author Author [facility] Organization [facility] Address Unknown Phone Unavailable Care Team Providers Care Finisher Fine Diamond Dies Name Role Phone Miguel POWER TOOL REPAIRER, Meliza Unavailable Unavailable Allergies, Adverse Reactions, Alerts Substance Reaction Status Criticality No Known Allergies Active No Information Medications Medication Instructions Dosage Effective Dates (start - stop) Sta tus Comments metronidazole 500 mg tablet 1 tab po bid x 7d (#14) Oc - Active trazodone 50 mg tablet take 1 tablet by oral route every day at bedtime 50 MG - Active hydroxyzine HCl 25 mg tablet take 1 tablet by oral rou te 3 times every day as needed 25 MG - Active fluconazole 150 mg tablet 1 po x 1 for fungal infection - No Longer Active metronidazole 500 mg tablet 1 tab po bid x 7d (#14) Oc - No Longer Active fluconazole 150 mg tablet 1 po x 1 for fungal infection - No Longer Active DO NOT TAKE HYDROXYZINE W/ F LUCONAZOLE Problems Condition Effective Dates (start - stop) [...] counseling High risk heterosexual behavior 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) (routine) w/o abn findings Family Planning Counseling STI Counseling STI Screening HIV Counseling HIV, Screening PT, Negative Vulvodynia BV Yeast-vulvovaginal BCM Other, Surveillance HIV Counseling HIV, Screening STI Screening Breast screening HPV Screening Test PT, Negative CLAIM AUDITOR Exam, Routine WWE Family Planning Counseling Yeast-vulvovaginal STI Screening PAP, High Risk HPV CLAIM AUDITOR Exam, Routine WWE STI Screening F/U Surgical AB STI Screening Procedures Procedure Date URINE TEST OFFICE VISIT, EST CHYLMD TRACH, URINE N.GONORRHOEAE, URINE HEPATITIS C AB TEST HTLV/HIV SERUM TEST SYPHILLIS BLOOD SEROLOGY, QUALITATIVE CVR Blood Pressure CVR Med.Svc. Height/Weight CVR Medical Education Coordinator.Svc. Contraceptive CVR Medical Education Coordinator.Svc. Other CVR Medical Education Coordinator.Svc. STI / H ASSAY OF BODY FLUID ACIDITY SMEAR, WET MOUNT, SALINE/INK Results Test Name Date and Time Measure Units Reference Range Abnormal Flag St atus Comments Panel Description: Wet Prep Final Wet Prep 11:44:38 Hyphae/Lorri: yes ; Budding yeast: no; Trich: no; Clue cells: yes (>=20%); WBCs: yes (few); Amine/Whiff test: positive; pH: 5.5 A Final Panel Description: Vaginal pH Final Vaginal pH 11:44:11 pH: 5.5. Final Panel Description: High Sensitivity Urine Test Fi nal High Sensitivity Urine Test 10:53:08 N egativeLot: [id number]: 07/01/2021 Final Advance Directives Directive Yes / No Effective Date File Name No Information Encounters Encounter Description Practice Location Reason(s) For Visit Diagnose s Date Provider Providers Copied on Encounter OFFICE VISIT, EST [facility], [address] [place] [address], [id number], tel:[phone] [facility] [place] Vaginal Discharge (chief complaint)STI Exposure/Screening/Testing (chief complaint) Encounter for test, result negativeEncounter for oth general cnsl and advice on contraceptionEncntr screen for infections w sexl mode of transmissEncounter for screening for human immunodeficiency virusHuman immunodeficiency virus [HIV] counselingOther sex counselingAcute vaginitisCandidiasis of vulva and vaginaOther specified noninflammatory disorders of vaginaPruritus vulvae Miguel Haider. [address] [place] [address], [id number], . tel:[phone] Referring Provider: Meliza Rivera, [address] [place] [address], [id number]. tel:[phone] [facility], [address] [place] [address], [id number], tel:[phone] [facility] [place] Encounter for pregn jesse test, result negativeEncntr screen for infections w sexl mode of transmissHigh risk heterosexual behaviorCandidiasis of vulva and vaginaFuruncle, unspecified Isaura Powell. [address] [place] [address], [id number], . tel:[phone] Referring Provider: Sherry Delarosa, [address] [place] [address], [id number]. tel:[phone] [facility], [address] [place] [address], [id number], [place] tel:[phone] [facility] [place] Encounter for pregn jesse test, result negativeEncntr screen for infections w sexl mode of transmissHigh risk heterosexual behaviorOther sex counselingEncounter for oth general cnsl and advice on contraceptionAcute vaginitis Miguel grewal [address] [place] [address], [id number], [place]. tel:[phone] Referring Provider: Meliza Rivera, [address] [place] [address], [id number]. tel:[phone] [facility], [address] [place] [address], [id number], [place] tel:[phone] [facility] [place] Pelvic and perineal painOther sex counselingEncounter for oth general cnsl and advice on contraceptionEncounter for test, result negativeOther specified noninflammatory disorders of vagina Bronwyn Hubbard. [address] [place] [address], [id number]. tel:[phone] Referring Provider: Haydee Barnhart, [address] [place], [place], [id number]. tel:[phone] [facility], [address] [place] [address], [id number], [place] tel:[phone] [facility] [place] Encounter for oth g eneral cnsl and advice on contraceptionEncntr screen for infections w sexl mode of transmissEncounter for screening for human immunodeficiency virusHuman immunodeficiency virus [HIV] counselingAcute vaginitisPruritus vulvaePerson consulting for explanation of exam or test findings Keysha Pierce. [address] [place] [address], [id number], [place]. tel:[phone] Referring Provider: Kari Elder, [address] [place] [address], [id number]. tel:[phone] [facility], [address] [place] [address], [id number], tel:[phone] CHRIST[facility]AKMELECIO Boyce Encounter for oth g eneral cnsl and advice on contraceptionEncounter for initial prescription of other contraceptivesEncounter for test, result negativeEncntr screen for infections w sexl mode of transmissEncounter for screening for human immunodeficiency virusHuman immunodeficiency virus [HIV] counselingPruritus vulvaeAcute vaginitisOther sex counselingHigh risk heterosexual behavior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) (routine) w/o abn findings Jorge Hubbard. [address] [place] [address], [id number]. tel:[phone] Referring Provider: Haydee Barnhart, [address] [place] [address], [id number]. tel:[phone] [facility], [address] [place] [address], [id number], tel:[phone] [facility] Family Planning Cou nselingSTI CounselingSTI ScreeningHIV CounselingHIV, ScreeningPT, NegativeVulvodyniaBVYeast-vulvovaginal Bronwyn Hubbard. [address] [place] [address], [id number]. tel:[phone] Referring Provider: Haydee Barnhart, [address] [place] [address], [id number]. tel:[phone] [facility], [address] [place] [address], [id number], [place] tel:[phone] [facility] BCM Other, Surveillance Elvin Cox. [address] [place] [address], [id number], . tel:[phone] [facility], [address] [place] [address], [id number], [place] tel:[phone] CHRISTINEAKMELECIO Boyce HIV CounselingHIV, ScreeningSTI ScreeningBreast screeningHPV Screening TestPT, NegativeGYN Exam, Routine WWEFamily Planning Counseling Elvin Cox. [address] [place], [place], [id number], [place]. tel:[phone] [facility], [address] [place] [address], [id number], [place] tel:[phone] CLEO Boyce Yeast-vulvovaginalSTI Scr eening Elvin oCx. [address] [place], [place], [id number], [place]. tel:[phone] [facility] [place], [address] [place] [address], [id number], [place] tel:[phone] CLEO VALDIVIA, High Risk HPV Arredondo. [address] [place] [address], [id number], [place]. tel:[phone] Referring Provider: Karen Barroso, [address] [place] [address], [id number]. tel:[phone] [facility] [place], [address] [place] [address], [id number], [place] tel:[phone] CLEO Boyce CLAIM AUDITOR Exam, Routine WWESTI Screening Matteo Carreon. [address] [place] [address], [id number], [place]. tel:[phone] [facility] [place], [address] [place] [address], [id number], [place] tel:[phone] CLEO Boyce F/U Surgical ABSTI Screen ing Elvin Cox. [address] [place], [place], [id number], [place]. tel:[phone] Family History Family Member Diagnosis Age At [...] Provider Payers Payer name Insurance type Covered democrat ID Authorization(s ) [employer] CI [id number] Social History Type Description Quantity Date Captured Comments Alcohol Use Details Unknown Caffeine Use Details Unknown Tobacco Use Status No Information Smoking Status Former smoker Sex Female Vital Signs Date / Time: Height Weight BMI Pulse Rate Blood Pressure Temperatu re Respiratory Rate Body Surface Area Head Circumference BMI percentile Pulse Ox In haled Ox 10:39 AM 68.00 in 150.80 lbs 22.93 kg/meter(2) 118/7 0 mm[Hg] Chief Complaint And Reason For Visit Most recent encounter only, dated '05/31/2020 10:15'. Vaginal Discharge (chief complaint) STI Exposure/Screening/Testing (chief complaint) Reason For Referral Reason For Referral No [...] Dates (start - stop) Sta tus Comments fluconazole 150 mg tablet 1 po x 1 for fungal infection - No Longer Active metronidazole 500 mg tablet 1 tab po bid x 7d (#14) Oc - No Longer Active Instructions Date Instruction Additional Informati on No Information Assessments Type Assessment Date assessment Encounter for test, result neg ative assessment Encounter for oth general cnsl and advic e on contraception assessment Encntr screen for infections w sexl mode of transmiss assessment Encounter for screening for human immuno deficiency virus assessment Human immunodeficiency virus [HIV] couns eling assessment Other sex counseling assessment Acute vaginitis assessment Candidiasis of vulva and vagina 020 assessment Other specified noninflammatory disorder s of vagina assessment Pruritus vulvae Goals Health Concern Goal Type Priority Status Date No Information Medical Equipment Description Device Rowena Device Identifier Effective Luke es (start - stop) Status No Information Mental Status Date Cognitive Assessment Orientation - Oriented to ti me, place, person, situation.Normal Orientation Health Concerns Observation Date No Information Concern Status Date No Information Physical Examination Exam Findings Details Neurological Normal Level of consciousne ss - Normal. Orientation - Normal. Psychiatric Normal Orientation - [place] ed to time, place, person & situation. Genitourinary Normal Urethral meatus - No rmal. Urethra - Normal. External genitalia - Normal. Glands - Normal. Perineum - Normal. Anus - Normal. Vagina - Normal. Cervix - Normal. Genitourinary * Vaginal discharge - Thin white..
--- NOTE | 2020-08-19 18:17 | REP ---
INDICATION: TRAUMA. COMPARISON: None. TECHNIQUE: Four views FINDINGS: There is a nondisplaced fracture involving the mid-diaphysis of the proximal phalanx of the 5th digit. There is associated soft tissue swelling. IMPRESSION: Fracture 5th digit as described above. <Electronically signed by Efren Kevin > 08/19/20 [id number]
--- OUTSIDE RECORDS SUMMARY | 2020-08-19 19:27 | CCD ---
Author Author [facility] Organization [facility] Address Unknown Phone Unavailable Care Team Providers Care Casualty Claim Adjuster Name Role Phone Miguel ULLOAKiarrassica Unavailable Miguel SANDERSP Kiarra Meliza Unavailable Miguel SANDERSP, Kiarra Meliza Unavailable Miguel SANDERSP, Kiarra Meliza Unavailable Rivera BELT REPAIRER, Kiarar Meliza Unavailable Rivera BELT REPAIRER, Kiarra Meliza Unavailable Joe Marquez Unavailable Unavailable Joe Marquez Unavailable Unavailable Joe Marquez Unavailable Unavailable [place], J Dai PA Unavailable Unavailable [place], J Dai PA Unavailable Unavailable [place], J Dai PA Unavailable Unavailable [place], J Dai PA Unavailable Unavailable [place], J Dai PA Unavailable Unavailable [place], J Dai PA Unavailable Unavailable [place], J Dai PA Unavailable Unavailable [place], J Dai PA Unavailable Unavailable [place], J Dai PA Unavailable Unavailable [place], J Dai PA Unavailable Unavailable [place], J Dai PA Unavailable Unavailable [place], J Dai PA Unavailable Unavailable [place], J Dai PA Unavailable Unavailable [place], J Dai PA Unavailable Unavailable [place], J Dai PA Unavailable Unavailable [place], J Dai PA Unavailable Unavailable [place], J Dai PA Unavailable Unavailable [place], J Dai PA Unavailable Unavailable [place], J Dai PA Unavailable Unavailable Re-disclosure Warning [...] law may result in a fine or skilled nursing sentence or both. A general authorization for the release of medical or other information is NOT sufficient authorization for further disc losure. Family History Family Member Name Family Member Gender Family Member Status Date o f Status Description Data Source(s) Unknown Female Diagnosis 08/23/2014 12:00:00 AM EST [facility] ([facility]) Encounters Encounter Providers Location Date Indications Data Source(s ) Attender: Dai WAHL PPNCNY [place] 07/04 02:22:00 PM EST - 07/31/2020 02:22:00 PM EST [facility] ([facility]) OutpatientOFFICE VISIT, EST Attender: Meliza ULLOA PPNCN Y [place] 05/31/2020 10:15:00 AM EDT - 05/31/2020 10:15:00 AM EDT Pruritus vulvaeOther specified noninflammatory disorders of vaginaCandidiasis of vulva and vaginaAcute vaginitisOther sex counselingHuman immunodeficiency virus [HIV] counselingEncounter for screening for human immunodeficiency virusEncntr screen for infections w sexl mode of transmissEncounter for oth general cnsl and advice on contraceptionEncounter for test, result negative [facility] ([facility]) Pruritus vulvae Other specified noninflammatory disorder s of vagina Candidiasis of vulva and vagina Acute vaginitis Other sex counseling Human immunodeficiency virus [HIV] couns eling Encounter for screening for human immuno deficiency virus Encntr screen for infections w sexl mode of transmiss Encounter for oth general cnsl and advic e on contraception Encounter for test, result neg ative [address] [address] 01/17/2020 12:00:00 AM EDT [facility] [address] [address] 12/15/2019 12:00:00 AM EDT eCW1 ([facility]) [address] [address] 11/29/2019 12:00:00 AM EDT eCW1 ([facility]) [address] [address] 11/29/2019 12:00:00 AM EDT [facility]CW1 [facility] [address] [address] 11/07/2019 12:00:00 AM EDT [facility]CW[facility] [address] [address] 10/11/2019 12:00:00 AM EDT [facility]CW1 [facility]) [address] [address] 09/27/2019 12:00:00 AM EST [facility]CW1 [facility]) [address] [address] 09/12/2019 12:00:00 AM EST eCW1 ([facility]) [address] [address] 09/06/2019 12:00:00 AM EST eCW1 ([facility]) [address] [address] 08/28/2019 12:00:00 AM EST eCW1 ([facility]) [address] [address] 2019 12:00:00 AM EST eCW1 ([facility]) [address] [address] 07/06/2019 12:00:00 AM EST [facility]CW1 ([facility]) [address] [address] 07/06/2019 12:00:00 AM EST [facility]CW1 [facility] Medications Medication Brand Name Start Date Product Form Dose Route Admi nistrative Instructions Pharmacy Instructions Status Indications Reaction Description Data Source(s) Metronidazole 500 MG Oral Tablet metronidazole 500 mg tablet metronidazole 500 mg tablet 05/31/2020 12:00:00 AM EDT active 1 tab po bid x 7d (#14) [facility] ([facility]) Fluconazole 150 MG Oral Tablet fluconazole 150 mg tabl et fluconazole 150 mg tablet 05/31/2020 12:00:00 AM EDT completed 1 po x 1 for fungal infection [facility] ([facility]) DO NOT TAKE HYDROXYZINE W/ FLUCONAZOLE Fluconazole 150 MG Oral Tablet fluconazole 150 mg tabl et fluconazole 150 mg tablet 05/31/2020 12:00:00 AM EDT completed 1 po x 1 for fungal infection [facility] ([facility]) Medication administered onsite Metronidazole 500 MG Oral Tablet metronidazole 500 mg tablet metronidazole 500 mg tablet 05/31/2020 12:00:00 AM EDT complete d 1 tab po bid x 7d (#14) [facility] ([facility]) Medication administered onsite ferrous gluconate 324 MG Oral Tablet Ferrous Gluconate 324 (38 Fe) MG Ferrous Gluconate 324 (38 Fe) MG 10/11/2019 12:00:00 AM EDT active 1 tablet with water or juice between meals eCW1 ([facility]) Oseltamivir 75 MG Oral Capsule [Tamiflu] Tamiflu 75 MG Tamif isaiah 75 MG 09/06/2019 12:00:00 AM EST active 1 capsul e eCW1 ([facility]) Fluconazole 150 MG Oral Tablet [Diflucan] Diflucan 150 MG Di flucan 150 MG 07/06/2019 12:00:00 AM EST suspended 1 tablet eCW1 ([facility]) Fluconazole 150 MG Oral Tablet [Diflucan] Diflucan 150 MG Di flucan 150 MG 07/06/2019 12:00:00 AM EST active 1 tablet eCW1 ([facility]) Fluconazole 150 MG Oral Tablet [Diflucan] Diflucan 150 MG Di flucan 150 MG 07/06/2019 12:00:00 AM EST suspended 1 tablet eCW1 ([facility]) Insurance Providers Payer name Policy type / Coverage type Policy ID Covered democrat ID Covered democrat's relationship to paz Policy Paz Plan Information FABY [id number] SP [id number] FABY [id number] SP [id number] FABY [facility] [id number] S [id number] ANSI-Commercial [id number] ANSI-Commercial [id number] ANSI-Commercial [id number] ANSI-Commercial [id number] ANSI-Commercial [id number] ANSI-Volance [id number] ANSI-Volance [id number] ANSI-Medicaid [id number] [facility]I-Medicaid [id number] MEDICAID [id number] SP [id number] [facility]I-Medicaid [id number] [facility]I-Medicaid [id number] ANSI-Medicaid [id number] ANSI-Medicaid [id number] ANSI-Medicaid [id number] ANSI-Commercial [id number] ANSI-Commercial [id number] ANSI-Commercial [id number] ANSI-Commercial [id number] MEDICAID [id number] S [id number] FABY CARE [id number] S [id number] BLUE CROSS [id number] S [id number] MEDICAID [id number] FABY I [id number] Self [id number] MEDICAID M [id number] Self [id number] FABY I [id number] Self [id number] UNAVAILABLE UNAVAILA BLE MEDICAID GME [id number] [place] [id number] [place] [id number] MEDICAID [id number] S [id number] SELF PAY ON CONTRACT *5% OF 85% CC DISC- 12/31/16 S *5% OF 85% CC DISC- 6/1/17 SELF PAY ON CONTRACT UNAVAILABLE S UNAVAILABLE SELF-PAY [id number] S [id number] SELF-PAY UNAVAILABLE S UNAVAILA BLE POMCO [id number] S [id number] SELF-PAY [id number] S [id number] Surgeries/Procedures Procedure Description Date Indications Data Source(s) SMEAR, WET MOUNT, SALINE/INK 05/31/2020 12:00:00 AM EDT - 05/31/2020 12:00:00 AM EDT [facility] ([facility]) ASSAY OF BODY FLUID ACIDITY 05/31/2020 1 2:00:00 AM EDT - 05/31/2020 12:00:00 AM EDT [facility] ([facility]) CVR Auto Engine Mechanic.Svc. STI / H 05/31/2020 12:00:00 AM EDT - 05/31/2020 12:00:00 AM EDT [facility] ([facility]) CVR Auto Engine Mechanic.Svc. Other 05/31/2020 12:00:00 AM EDT - 2019 12:00:00 AM EDT [facility] ([facility]) CVR Auto Engine Mechanic.Svc. Contraceptive 05/31/2020 12 :00:00 AM EDT - 05/31/2020 12:00:00 AM EDT [facility] ([facility]) CVR Med.Svc. Height/Weight 05/31/2020 12 :00:00 AM EDT - 05/31/2020 12:00:00 AM EDT [facility] ([facility]) CVR Blood Pressure 05/31/2020 12:00:00 AM EDT - 2019 12:00:00 AM EDT [facility] ([facility]) SYPHILLIS BLOOD SEROLOGY, QUALITATIVE 12:00:00 AM EDT - 05/31/2020 12:00:00 AM EDT [facility] ([facility]) HTLV/HIV SERUM TEST 05/31/2020 12:00:00 AM EDT - 05/31 12:00:00 AM EDT [facility] ([facility]) HEPATITIS C AB TEST 05/31/2020 12:00:00 AM EDT - 05/31 12:00:00 AM EDT [facility] ([facility]) N.GONORRHOEAE, URINE 05/31/2020 12:00:00 AM EDT - 05/31/2020 12:00:00 AM EDT [facility] ([facility]) CHYLMD TRACH, URINE 05/31/2020 12:00:00 AM EDT - 05/31 12:00:00 AM EDT [facility] ([facility]) OFFICE VISIT, EST 05/31/2020 12:00:00 AM EDT - 020 12:00:00 AM EDT [facility] ([facility]) URINE TEST 05/31/2020 12:00:00 AM EDT - 05/31/2020 12:00:00 AM EDT [facility] ([facility]) OB Visit 08/28/2019 12:00:00 AM EST e CW1 ([facility]) Results ID Date Data Source [id number] 05/31/2020 11:44:38 AM EDT [facility] ([facility]) Name Value Range Interpretation Code Description Data Christa rce(s) Supporting Document(s) Hyphae/Lorri: yes; Budding yeast: no; Trich: no; Clue cells: yes (>=20%); WBCs: yes (few); Amine/Whiff test: positive; pH: 5.5 A bnormal (applies to non- numeric results) Wet Prep [facility] ([facility]) ID Date Data Source [id number] 05/31/2020 11:44:11 AM EDT [facility] ([facility]) Name Value Range Interpretation Code Description Data Christa rce(s) Supporting Document(s) pH: 5.5. Vaginal pH [facility] ([facility]) ID Date Data Source [id number] 05/31/2020 10:53:08 AM EDT [facility] ([facility]) Name Value Range Interpretation Code Description Data Christa rce(s) Supporting Document(s) NegativeLot: [id number]: 07/01/2021 High Sensitivity Urine Test [facility] ([facility]) Procedure Social History Code Duration Value Status Description Data Source(s ) Smoking 07/31/2020 12:00:00 AM EST Former smoker completed Former smoker [facility] ([facility]) Vital Signs ID Date Data Source UNK Name Value Range Interpretation Code Description Data Source(s) Body mass index (BMI) [Ratio] 22.93 kg/m2 22.93 kg/m2 [facility] ([facility]) Diastolic blood pressure 70 mm[Hg] 70 mm[Hg] [facility] ([facility]) Systolic blood pressure 118 mm[Hg] 118 mm[Hg] N [facility] ([facility]) Body weight 68.402 kg 68.402 kg [facility] ([facility]) Body height 172.72 cm 172.72 cm [facility] Diastolic blood pressure 70 mm[Hg] 70 mm[Hg] W1 ([facility]) Systolic blood pressure 120 mm[Hg] 120 mm[Hg] e 1 ([facility]) Body mass index (BMI) [Ratio] 27.977 kg/m2 27.9 77 kg/m2 [facility] ([facility]) Body height 68 [in_us] 68 [in_us] [facility] ([facility]) Body weight Measured 184.0 [lb_av] 184.0 [lb_av ] [facility] ([facility]) Diastolic blood pressure 62 mm[Hg] 62 mm[Hg] eCW1 ([facility]) Systolic blood pressure 102 mm[Hg] 102 mm[Hg] e CW1 ([facility]) Body mass index (BMI) [Ratio] 27.186 kg/m2 27.1 86 kg/m2 [facility] ([facility]) Body height 68 [in_us] 68 [in_us] [facility] ([facility]) Body weight Measured 178.8 [lb_av] 178.8 [lb_av ] [facility] ([facility]) Diastolic blood pressure 64 mm[Hg] 64 mm[Hg] eCW1 ([facility]) Systolic blood pressure 110 mm[Hg] 110 mm[Hg] e CW1 ([facility]) Body mass index (BMI) [Ratio] 25.848 kg/m2 25.8 48 kg/m2 eCW1 ([facility]) Body height 68 [in_us] 68 [in_us] eCW1 ([facility]) Body weight Measured 170 [lb_av] 170 [lb_av] eC W1 ([facility]) Patient Treatment Plan of Care Planned Activity Planned Date Details Description Data Source (s) Metronidazole 500 MG Oral Tablet 05/31/2020 12:00:00 AM EDT [facility] ([facility]) Fluconazole 150 MG Oral Tablet 05/31/2020 12:00:00 AM EDT [facility] ([facility]) Fluconazole 150 MG Oral Tablet 05/31/2020 12:00:00 AM EDT [facility] ([facility]) Metronidazole 500 MG Oral Tablet 05/31/2020 12:00:00 AM EDT [facility] ([facility]) ferrous gluconate 324 MG Oral Tablet 10/11/2019 12:00:00 AM EDT eCW1 ([facility]) Oseltamivir 75 MG Oral Capsule [Tamiflu] 09/06/2019 12:00:00 AM EST eCW1 ([facility]) Fluconazole 150 MG Oral Tablet [Diflucan] 07/06/2019 12:00:00 AM ES T eCW1 ([facility])
[2020-08-19 20:18] VITALS: BP 134/64
== END 2020-08-19 20:20 | disposition home or self-care (01) ==
LOC: M ED 17:54
DX: S92.515A Nondisplaced fracture of proximal phalanx of left lesser toe(s), initial encounter for closed fracture (principal); S90.32XA Contusion of left foot, initial encounter; W22.09XA Striking against other stationary object, initial encounter; Y92.009 Unspecified place in unspecified non-institutional (private) residence as the place of occurrence of the external cause; Y93.89 Activity, other specified; Y99.8 Other external cause status; F90.9 Attention-deficit hyperactivity disorder, unspecified type; F41.9 Anxiety disorder, unspecified; Z87.828 Personal history of other (healed) physical injury and trauma; Z82.49 Family history of ischemic heart disease and other diseases of the circulatory system; Z84.1 Family history of disorders of kidney and ureter

== ENCOUNTER → 2020-09-30 | Outpatient (REF) | payer OTHER ==
[2020-09-30 12:57] LABS: BASO % 0.8 % (0.0-1.0); EOS # 0.1 10^3/uL (0.0-0.5); EOS % 1.5 % (0.0-3.0); HEMATOCRIT 39.1 % (36.0-47.0); HEMOGLOBIN 12.8 g/dl (12.0-15.5); LYMPH # 1.4 10^3/uL (1.5-5.0); LYMPH % 36.6 % (24.0-44.0); MEAN CORPUSCULAR HGB CONC 32.7 g/dl (32.0-36.5); MEAN CORPUSCULAR VOLUME 85.6 fl (80.0-96.0); MONO # 0.4 10^3/uL (0.0-0.8); NEUTROPHILS % 50.6 % (36.0-66.0); PLATELET COUNT, AUTOMATED 271 10^3/uL (150-450); RED BLOOD COUNT 4.57 10^6/uL (4.00-5.40); WHITE BLOOD COUNT 3.9 10^3/uL (4.0-10.0)
[2020-09-30 13:38] LABS: ALT/SGPT 22 U/L (12-78); BILIRUBIN,TOTAL 0.9 MG/DL (0.2-1.0); BLOOD UREA NITROGEN 17 MG/DL (7-18); CALCIUM LEVEL 8.9 MG/DL (8.5-10.1); CARBON DIOXIDE LEVEL 24 MEQ/L (21-32); CHLORIDE LEVEL 111 MEQ/L (98-107); CREATININE FOR GFR 0.91 MG/DL (0.55-1.30); GLOMERULAR FILTRATION RATE > 60.0 (>60); GLUCOSE, FASTING 95 MG/DL (70-100); POTASSIUM SERUM 4.5 MEQ/L (3.5-5.1); SODIUM LEVEL 142 MEQ/L (136-145); TOTAL 25(OH) VITAMIN D 55.2 NG/ML (30.0-100.0); TOTAL PROTEIN 6.8 GM/DL (6.4-8.2)
[2020-10-01 14:09] LABS: ANTINUCLEAR ANTIBODIES DIRECT Negative (Negative)
== END ==
LOC: M LAB REF 12:34
PROVIDERS: ATTEND Pediatrics
DX: E03.9 Hypothyroidism, unspecified (principal); Z83.2 Family history of diseases of the blood and blood-forming organs and certain disorders involving the immune mechanism

== ENCOUNTER 2020-10-26 18:21 | Emergency (ER) | payer OTHER ==
[~2020-10-26] VITALS: Ht 172.7 cm; Wt 63.4 kg
[2020-10-26] MEDS ORDERED: LIDOCAINE 5% (LIDODERM) PATCH TD ONE (20:20)
[2020-10-26] MEDS ORDERED: MORPHINE 4 MG/ML 1ML VIAL/SYRINGE (J2270) IV ONE ×2 (20:20→21:55)
[2020-10-26] MEDS ORDERED: NS 1,900 ML in IV 1 EA IV ONE (20:20)
[2020-10-26] MEDS ORDERED: METHOCARBAMOL 1,000 MG/10 ML VIAL (J2800) IV ONE (20:20)
[2020-10-26 21:07] LABS: BASO % 0.2 % (0.0-1.0); EOS % 0.3 % (0.0-3.0); HEMATOCRIT 36.2 % (36.0-47.0); LYMPH # 1.2 10^3/uL (1.5-5.0); LYMPH % 9.7 % (24.0-44.0); MEAN CORPUSCULAR HEMOGLOBIN 27.9 pg (27.0-33.0); MEAN CORPUSCULAR HGB CONC 33.1 g/dl (32.0-36.5); MEAN CORPUSCULAR VOLUME 84.2 fl (80.0-96.0); MONO # 0.9 10^3/uL (0.0-0.8); MONO % 7.8 % (2.0-8.0); NEUTROPHILS # 9.7 10^3/uL (1.5-8.5); NEUTROPHILS % 81.5 % (36.0-66.0); PLATELET COUNT, AUTOMATED 312 10^3/uL (150-450); WHITE BLOOD COUNT 11.9 10^3/uL (4.0-10.0)
[2020-10-26 21:26] LABS: ERYTHROCYTE SEDIMENTATION RATE 62 mm/hr (0-20)
--- NOTE | 2020-10-26 22:34 | REPVR ---
PROCEDURE INFORMATION: Exam: XR Right Elbow Exam date and time: 10/26/2020 9:53 PM Age: 30 years old Clinical indication: Other: Abscess d/t ivda, osteomyelitis TECHNIQUE: Imaging protocol: XR Right elbow. Views: 3 or more views. COMPARISON: No relevant prior studies available. FINDINGS: Bones/joints: See "Soft tissues" finding. Soft tissues: There are multiple needle-like foreign bodies in the soft tissues of the elbow. These measures 1.1 cm, 1.2 cm and 7 mm. A large ulceration is seen in the elbow. No bony erosions to suggest acute osteomyelitis. IMPRESSION: Multiple needle-like foreign bodies in the soft tissues of the elbow as described above. Large ulceration in the elbow. No bony abnormality to suggest acute osteomyelitis. Electronically signed by: Champ Doty On 10/26/2020 22:34:03 PM
[2020-10-26] MEDS ORDERED: VANCOMYCIN HCL 1,250 MG in IV FLUID PLACE HOLDER 1 EA IV ONE (22:35)
[2020-10-26] MEDS ORDERED: VANCOMYCIN HCL 750 MG, VIAL MATE ADAPTER 1 EACH in NS 250 ML IV ONE (22:40)
[2020-10-26] MEDS ORDERED: fentaNYL 100 MCG/2 ML INJECTION (J3010) IV ONE (23:25)
[2020-10-26] MEDS ORDERED: diazePAM 10MG/2ML SYRINGE (J3360 PER 5MG) IV ONE (23:30)
[2020-10-26] MEDS ORDERED: VANCOMYCIN HCL 500 MG in D5W MINI-BAG PLUS 100 ML IV ONE (23:40)
[2020-10-27] MEDS ORDERED: KETOROLAC 30 MG/ML 1ML VIAL IV ONE (00:20)
[2020-10-27] MEDS ORDERED: diazePAM 10MG/2ML SYRINGE (J3360 PER 5MG) IV ONE (00:35)
[2020-10-27] MEDS ORDERED: PROHANCE 279.3MG/ML 15ML VIAL As Ordered ONE (01:57)
[2020-10-27] MEDS ORDERED: fentaNYL 100 MCG/2 ML INJECTION (J3010) IV ONE ×2 (02:35→05:25)
--- NOTE | 2020-10-27 03:24 | REPVR ---
PROCEDURE INFORMATION: Exam: MR Thoracic Spine Without and With Contrast Exam date and time: 10/27/2020 2:12 AM Age: 30 years old Clinical indication: Other: Severe midback pain; Additional info: Ivduser, severe mid thoracic and neck pain, abscess ac elbow TECHNIQUE: Imaging protocol: Multiplanar magnetic resonance images of the thoracic spine without and with contrast. Contrast material: PROHANCE; Contrast volume: 13 ml; Contrast route: INTRAVENOUS (IV); COMPARISON: No relevant prior studies available. FINDINGS: Vertebrae: There is slight anterior wedging/compression fractures involving the T6 and T7 vertebral bodies. No acute marrow edema is identified at these levels, consistent with chronic deformities. The remaining thoracic vertebral bodies are normal in height, without abnormal subluxation or acute marrow edema. Mild increased kyphosis of the thoracic spine. Epidural space: No epidural fluid collection identified. Spinal cord: Artifact limits evaluation of the thoracic spinal cord. No thoracic spinal cord compression or pathological enhancement visualized. Discs/Spinal canal/Neural foramina: No posterior disc herniation or significant spinal canal stenosis at any thoracic level. Motion artifact limits evaluation of the neural foramina, although the neural foramina are diffusely patent. Soft tissues: Left posterior paraspinal muscle edema identified. Within this musculature, there is a loculated collection of fluid concerning for abscess. This measures approximately the 1.3 x 0.6 x 4.8 cm and extends from the T7 to T8-9 levels. Lungs: Evaluation of the lungs on MRI is limited. A nodular consolidation is identified within the left lung posteriorly. This measures 1.8 cm in diameter. IMPRESSION: 1. Left posterior paraspinal muscle edema identified. Within this musculature, there is a loculated collection of fluid concerning for abscess. 2. There is slight anterior wedging involving the T6 and T7 vertebral bodies, with chronic compression deformities. 3. Mild increased kyphosis of the thoracic spine. 4. A nodular consolidation is identified within the left lung posteriorly. This measures 1.8 cm in diameter. Correlation with CT of the chest is recommended. 5. Additional findings described above. Electronically signed by: Junito Dangelo On 10/27/2020 03:24:05 AM
[2020-10-27 06:30] VITALS: BP 127/73
[2020-10-27] MEDS ORDERED: CLIN150C15 PO (08:17)
[2020-10-27] MEDS ORDERED: BACT800T5 PO (08:17)
[2020-10-27] MEDS ORDERED: **NOTE PATIENT COMMENT** MISC XX ONE (08:20)
== END 2020-10-27 08:14 | disposition left against medical advice (07) ==
LOC: M ED 18:21
DX: M60.08 Infective myositis, other site (principal); F15.188 Other stimulant abuse with other stimulant-induced disorder; M54.2 Cervicalgia; M25.521 Pain in right elbow; Z18.12 Retained nonmagnetic metal fragments; E03.9 Hypothyroidism, unspecified
CPT/HCPCS: 72157; 73080; 80047; 83605; 84702; 85025; 85652; 86140; 87040; 94760; 96361; 96365; 96366; 96375; 96376; 99285; A9576; J1885; J2270; J2800; J3010; J3360; J3370; U0002

== ENCOUNTER → 2020-10-28 | Outpatient (REF) ==
[~2020-10-28] MED LIST changes: +BACT800T5 PO; +CLIN150C15 PO
[2020-10-28 21:05] LABS: INFLUENZA A AMPLIFICATION NEGATIVE (NEGATIVE); INFLUENZA B AMPLIFICATION NEGATIVE (NEGATIVE)
== END ==
LOC: M LAB 11:38